=== PATIENT | female | born 1975 | race Native Hawaiian/Other Pacific Islander ===

== ENCOUNTER 2021-09-28 11:07 | Outpatient (CLI) | payer BC | END 2021-09-28 21:02 | disposition home or self-care (01) | LOC: MAMMO 11:07 | PROVIDERS: ATTEND Internal Medicine | DX: N95.8 Other specified menopausal and perimenopausal disorders (principal); M06.9 Rheumatoid arthritis, unspecified; Z12.31 Encounter for screening mammogram for malignant neoplasm of breast ==

== ENCOUNTER 2022-04-02 15:04 | Outpatient (CLI) | payer BC | END 2022-04-02 20:34 | disposition home or self-care (01) | LOC: RESP 15:04 | PROVIDERS: ATTEND Nurse Practitioner Family | DX: R07.89 Other chest pain (principal); R00.2 Palpitations; R06.02 Shortness of breath; N95.8 Other specified menopausal and perimenopausal disorders ==

== ENCOUNTER 2022-08-12 16:04 | Outpatient (CLI) | payer BC | END 2022-08-12 19:03 | disposition home or self-care (01) | LOC: LABW 16:04 | PROVIDERS: ATTEND Physician Assistant | DX: Z76.89 Persons encountering health services in other specified circumstances (principal); Z83.79 Family history of other diseases of the digestive system | CPT/HCPCS: 36415; 82784; 83516 ==

== ENCOUNTER 2022-11-20 08:25 | Outpatient (CLI) | payer BC | END 2022-11-20 19:18 | disposition home or self-care (01) | LOC: NM 08:25 | PROVIDERS: ATTEND Nurse Practitioner Family | DX: R11.2 Nausea with vomiting, unspecified (principal) | CPT/HCPCS: A9541 ==